=== PATIENT | female | born 1960 | race Caucasian/White ===

== ENCOUNTER 2020-07-29 11:23 | Outpatient (CLI) | payer OTHER ==
--- NOTE | 2020-07-29 12:22 | RAD ---
LEFT SHOULDER 3 VIEWS: Date: 07/29/2020 HISTORY: Left shoulder pain. FINDINGS/IMPRESSION: There are degenerative changes in the acromioclavicular joint. No fracture, dislocation, or bony dest ruction is identified. POS: AH
== END 2020-07-29 11:24 | disposition home or self-care (01) ==
LOC: SCSRAD 11:23
PROVIDERS: ATTEND Physical Medicine & Rehabilitation Sports Medicine
DX: M25.512 Pain in left shoulder (principal); M19.012 Primary osteoarthritis, left shoulder